=== PATIENT | male | born 1955 ===

== ENCOUNTER 2017-04-05 08:45 | Emergency (ER) | payer BC, OTHER ==
[2017-04-05 09:38] VITALS: BP 136/88
--- NOTE | 2017-04-05 10:05 | UC ---
Respiratory Complaint HPI - HPI Summary HPI Summary: cough x 2 days + chest congestion , fever, chills body aches - History of Current Complaint Chief Complaint: UCGeneralIllness Stated Complaint: FLU LIKE SYMPTOMS Time Seen by Provider: 04/05/17 09:36 Hx Obtained From: Patient Onset/Duration: Gradual Onset, Lasting Days - 2, Still Present Timing: Constant Severity Initially: Severe Severity Currently: Severe Aggravating Factors: Exertion, Deep Breaths Alleviating Factors: Nothing Associated Signs And Symptoms: Positive: Fever, Chills. Negative: Dyspnea, Pleuritic Chest Pain, Wheezing, Hemoptysis, Dizziness, Calf Pain, Calf Swelling , Edema, URI, Nasal Congestion - Allergies/Home Medications Allergies/Adverse Reactions: Allergies Allergy/AdvReac Type Severity Reaction Status Date / Time No Known Allergies Allergy Verified 04/05/17 09:38 Home Medications: Home Medications Trizivir 1 tab PO BID 04/05/17 [History] PMH/Surg Hx/FS Hx/Imm Hx Previously Healthy: Yes - Surgical History Surgical History: None - Family History Known Family History: Negative: Diabetes - Social History Alcohol Use: Occasionally Substance Use Type: None Smoking Status (MU): Never Smoked Tobacco Review of Systems Constitutional: Fever, Chills, Fatigue Skin: Negative Eyes: Negative ENT: Negative Respiratory: Cough Cardiovascular: Negative Gastrointestinal: Negative Musculoskeletal: Myalgia Neurological: Weakness Is Patient Immunocompromised?: No All Other Systems Reviewed And Are Negative: Yes Physical Exam Triage Information Reviewed: Yes Appearance: Well-Appearing, No Pain Distress, Well-Nourished Vital Signs: Initial Vital Signs Temp 100 F 04/05/17 09:32 Pulse 93 04/05/17 09:32 Resp 16 04/05/17 09:32 BP 136/88 04/05/17 09:32 Pulse Ox 97 04/05/17 09:32 Vital Signs Reviewed: Yes Eye Exam: Normal Eyes: Positive: Conjunctiva Clear ENT: Positive: Normal ENT inspection, Hearing grossly normal, Pharynx normal, Pharyngeal erythema Neck exam: Normal Neck: Positive: Supple, Nontender Respiratory: Positive: Chest non-tender, Lungs clear, Normal breath sounds Cardiovascular: Positive: RRR, No Murmur, Pulses Normal Skin Exam: Normal UC Diagnostic Evaluation - Laboratory O2 Sat by Pulse Oximetry: 97 Respiratory Course/Dx - Differential Dx/Diagnosis Provider Diagnoses: viral illness Discharge - Discharge Plan Condition: Stable Disposition: HOME Prescriptions: Oseltamivir Phosphate [Tamiflu] 75 mg PO BID #10 cap Patient Education Materials: Viral Syndrome (ED) Referrals: Tc Felton [Primary Care Provider] - If Needed Additional Instructions: negative rapid influenza + flu symptoms will start Tamiflu x 5 days cont with rest, increase fluid, Tylenol as needed for pain or fever
== END 2017-04-05 10:09 | disposition home or self-care (01) ==
LOC: UCCORT 08:45
DX: B34.9 Viral infection, unspecified (principal); Z72.89 Other problems related to lifestyle
CPT/HCPCS: 87502; 99202; G0463